=== PATIENT | male | born 1940 | race Caucasian/White ===

== ENCOUNTER 2016-12-06 13:44 | Emergency (ER) | payer OTHER, MEDICARE ==
[~2016-12-06] VITALS: Ht 188 cm; Wt 90.0 kg
[2016-12-06 13:49] VITALS: BP 207/93; PULSE 82; RESP 18; TEMP 97.9; O2SAT 100
[2016-12-06 13:55] VITALS: RESP 18; O2SAT 100
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
== END 2016-12-06 15:57 | disposition home or self-care (01) ==
LOC: NEPC 13:44
DX: S20.211A Contusion of right front wall of thorax, initial encounter (principal); V43.52XA Car driver injured in collision with other type car in traffic accident, initial encounter; I10 Essential (primary) hypertension; S00.411A Abrasion of right ear, initial encounter
CPT/HCPCS: 71020; 94150; 99284

== ENCOUNTER 2016-12-24 15:05 | Emergency (ER) | payer MEDICARE ==
[~2016-12-24] VITALS: Ht 188 cm; Wt 90.9 kg
[2016-12-24 15:07] VITALS: BP 202/92; PULSE 72; RESP 18; TEMP 98.1; O2SAT 97
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
[2016-12-24 17:37] VITALS: BP 227/98; PULSE 54; RESP 18; O2SAT 98
--- NOTE | 2016-12-24 17:39 | PD ---
HPI Chief Complaint: Pain: Acute or Chronic Time Seen by Provider: 17:35 Travel History International Travel<30 days: No Contact w/Intl Traveler<30days: No Traveled to known affect area: No History of Present Illness HPI 76-year-old male came to the emergency room with history of right leg pain in the calf area. Patient went to see his primary care who asked her to the emergency room to rule out DVT. Patient's blood pressure coincidently was noticed to be quite high. Patient says he hasn't taken his blood pressure medications and past 2 weeks since he hasn't been able to go and get the prescription refilled. No history of chest pain, shortness of breath or headache. No history of recent travel or procedures or surgeries. No history of past DVT. [facility] Past Medical History Narrative Medical List of his past medical, surgical, social and family history as reviewed from the nursing note. Hypertension: Yes Social History Alcohol Use: Yes (occ) Tobacco Use: No Substance Use: No Allergies-Medications (Allergen,Severity, Reaction): Coded Allergies: No Known Allergies (Unverified , 12/24/16) Comments No known drug allergies. Reported Meds & Prescriptions Reported Meds & Active Scripts Active No Active Prescriptions or Reported Medications Narrative Medication List of her home medications reviewed from the nursing note. Review of Systems Except as stated in HPI: all other systems reviewed are Neg Physical Exam Narrative GENERAL: Awake, alert, no obvious distress SKIN: Focused skin assessment warm/dry. HEAD: Atraumatic. Normocephalic. EYES: Pupils equal and round. No scleral icterus. No injection or drainage. ENT: No nasal bleeding or discharge. Mucous membranes pink and moist. NECK: Trachea midline. No JVD. CARDIOVASCULAR: Regular rate and rhythm. No murmur appreciated. RESPIRATORY: No accessory muscle use. Clear to auscultation. Breath sounds equal bilaterally. GASTROINTESTINAL: Abdomen soft, non-tender, nondistended. Hepatic and splenic margins not palpable. MUSCULOSKELETAL: No obvious deformities. No clubbing. No cyanosis. No edema. NEUROLOGICAL: Awake and alert. No obvious cranial nerve deficits. Motor grossly within normal limits. Normal speech. PSYCHIATRIC: Appropriate mood and affect; insight and judgment normal. Data Data Last Documented VS Vital Signs Date Time Temp Pulse Resp B/P Pulse Ox O2 Delivery O2 Flow Rate FiO2 5/1/17 18:58 70 18 196/87 98 Room Air 12/24/16 15:07 98.1 Orders Us Leg Venous Doppler (12/24/16 ) Clonidine (Catapres) (12/24/16 18:00) MDM Medical Decision Making Medical Screen Exam Complete: Yes Emergency Medical Condition: Yes Medical Record Reviewed: Yes Differential Diagnosis DVT, popliteal cyst Narrative Course 6:09 PM I've ordered an ultrasound of his leg. Awaiting for the test to be done and resulted. I will also ordered a dose of clonidine in the emergency room. 7:03 PM ultrasound report is back and it does not show any DVT. Patient will be discharged home. Procedures EKG Prior to Arrival: No Diagnosis Primary Impression: Hypertension Qualified Code: I10 - Essential hypertension Additional Impression: Leg pain Qualified Code: M79.604 - Pain of right lower extremity Referrals: Primary Care Physician 2 days Additional Instructions: Please return to the ER if the condition worsens or any other new concerns. Otherwise follow-up with your primary care in couple days. Med/Other Pt SpecificInfo: No Change to Meds Scripts No Active Prescriptions or Reported Meds Disposition: 01 DISCHARGE HOME Condition: Stable Jasmyn Barrios MD December 24, 2016 17:39
[2016-12-24] MEDS ORDERED: cloNIDine HCL 0.1 MG TAB PO ONE (18:00)
--- NOTE | 2016-12-24 18:52 | RADRPT ---
EXAM DATE/TIME: 12/24/2016 18:18 [facility] COMPARISON: No previous studies available for comparison. INDICATIONS : Right leg pain. MEDICAL HISTORY : Hypertension. SURGICAL HISTORY : None. ENCOUNTER: Initial ACUITY: 2 day PAIN SCORE: 3/10 LOCATION: Right leg. TECHNIQUE: Venous ultrasound of the leg was performed from the inguinal ligament to the proximal calf. Real-phyllis e, color Doppler and spectral tracing, compression and augmentation techniques were used. FINDINGS: There is normal compressibility of the deep venous system from the inguinal region to the proximal ca lf. No echogenic clot is seen in the lumen of the common femoral, femoral, popliteal, and posterior tibial veins. There is a normal response of the venous system to proximal and distal augmentation an d respiration. CONCLUSION: Normal. No DVT of the right lower extremity. Carlitos Steele MD on December 24, 2016 at 18:50 Board Certified Radiologist. This report was verified electronically.
[2016-12-24 18:58] VITALS: BP 196/87; PULSE 70; RESP 18; O2SAT 98
== END 2016-12-24 19:32 | disposition home or self-care (01) ==
LOC: NEPC 15:05
DX: I10 Essential (primary) hypertension (principal); M79.661 Pain in right lower leg
CPT/HCPCS: 93971